=== PATIENT | male | born 1985 | race African-American/Black ===

== ENCOUNTER 2021-02-18 15:09 | Emergency (ER) | payer OTHER ==
[~2021-02-18] VITALS: Ht 182.9 cm; Wt 93.0 kg
[~2021-02-18 15:09] MED LIST: NOHOMEMEDICATIONS; PHENERGAN 25 MG25 M1 PO
[2021-02-18 16:42] LABS: ABSOLUTE NEUTROPHILS 3.6 thou/uL (1.4-8.2); BASOPHILS 0.5 % (0.0-2.0); EOSINOPHILS 1.3 % (0.0-3.0); HEMATOCRIT 45.8 % (42.0-52.0); LYMPHOCYTES 34.8 % (24.0-44.0); MCHC 32.8 g/dL (28.0-37.0); MCV 85.3 fL (80.0-100.0); MONOCYTES 8.9 % (1.0-8.0); PLATELET COUNT 341 thou/uL (150-400); POLYS 54.5 % (36.0-66.0); RBC 5.37 mil/uL (4.50-6.00); RDW 14.8 % (10.5-14.5); WBC 6.6 thou/uL (4.0-11.0)
[2021-02-18 17:36] LABS: ANION GAP 8 mmol/L (7-16); BUN 13 mg/dL (7-18); CALCIUM 9.6 mg/dL (8.5-10.1); CHLORIDE 105 mmol/L (98-107); CO2 28 mmol/L (21-32); CREATININE 1.4 mg/dL (0.7-1.3); GLUCOSE 86 mg/dL (74-106); SODIUM 141 mmol/L (136-145)
[2021-02-18 17:46] LABS: ALBUMIN 4.4 g/dL (3.4-5.0); LIPASE 110 U/L (73-393); SGOT 28 U/L (15-37); SGPT 47 U/L (16-63); TOTAL BILIRUBIN 0.5 mg/dL (0.2-1.0); TOTAL PROTEIN 8.2 g/dL (6.4-8.2); TROPONIN-I <0.06 ng/mL (<0.06)
[2021-02-18] MEDS ORDERED: ULTRAM 50MG TAB50 MG PO (18:28)
[2021-02-18] MEDS ORDERED: PEPCID40 MG PO (18:28)
[2021-02-18 18:37] VITALS: BP 118/72
--- NOTE | 2021-02-19 07:34 | EKG ---
[place] [address] [facility] [place] [address] ELECTROCARDIOGRAM REPORT Name: LORI DEL VALLE [id number] Admission: 02/18/21 Attend Phys: Discharge: 02/18/21 Date of : 81 Report #: [id number] [facility] ED Test Date: 2021-02-18 Test Time: 15:25:36 Pat Name: LORI STREETDepartment: Room: Gender: Rejector: ELKE : 1985 Requested By: Erin Joens Order Number: [id number] MD: Justyn Hooks Measurements Intervals [place] Rate: 80 P: 7 UT: 178 QRS: 28 QRSD: 84 T: -20 QT: 369 QTc: 426 Interpretive Statements Sinus rhythm Nonspecific T wave abnormality Compared to ECG 07/16/2009 23:39:34 T wave abnormality is now present Electronically Signed On 02-19-2021 7:34:39 CDT by Justyn Hooks [email or web address] <ELECTRONICALLY SIGNED> By: Justyn Hooks MD, [facility] 02/19/21 0734 1525 1525 Justyn Hooks MD, FACC /EPI
== END 2021-02-18 18:38 | disposition home or self-care (01) ==
LOC: ER 15:09
PROVIDERS: Emergency Medicine
DX: R07.89 Other chest pain (principal); Z20.822 Contact with and (suspected) exposure to COVID-19; F17.210 Nicotine dependence, cigarettes, uncomplicated